=== PATIENT | female | born 1990 | race Caucasian/White ===

== ENCOUNTER 2019-01-26 13:47 | Emergency (ER) | payer SELFPAY ==
--- OUTSIDE RECORDS SUMMARY | 2019-01-26 13:49 | XMS REPORT ---
:1990 [facility] Address [address] [place] [address] Dr. Ray [address] [place] [address] Care Team Providers Name Role Phone Unavailable Unavailable Unavailable Problems This patient has no known problems. Allergies, Adverse Reactions, Alerts This patient has no known allergies or adverse reactions. Medications This patient has no known medications.
--- NOTE | 2019-01-26 14:20 | EKG ---
Test Date: 2019-01-26 Test Time: 14:02:12 Medical I D Sales: TOREY MEASUREMENT RESULTS: Intervals: Rate: 95 KS: 124 QRSD: 98 QT: 346 QTc: 434 [place]: P: 70 KS: 124 QRS: 64 T: 71 INTERPRETIVE STATEMENTS: Normal sinus rhythm Normal ECG No previous ECG available for comparison Electronically Signed On 01-26-19 14:19:39 CDT by Michael Johnson
[2019-01-26 15:54] LABS: Protime INR 0.99
--- NOTE | 2019-01-26 15:55 | RAD REPORT ---
EXAM DESCRIPTION: RAD - Chest Pa And Lat (2 Views) - 01/26/2019 3:05 pm CLINICAL HISTORY: Chest pain COMPARISON: None. TECHNIQUE: PA and lateral views of the chest were obtained. FINDINGS: The lungs are clear. Heart size is normal and central vasculature is within normal limit s. No pleural effusion or pneumothorax seen. No acute bony finding noted. No aortic abnormality. Nipple piercing jewelry in place. IMPRESSION: No acute cardiopulmonary process.
[2019-01-26] MEDS ORDERED: NA CHLORIDE 0.9% 1,000 ML ONE (16:06)
[2019-01-26] MEDS ORDERED: SUCRALFATE 1 GM TABLET ONE (16:06)
[2019-01-26 16:30] LABS: Troponin (Emerg Dept Use Only) < 0.02 ng/mL (0.0-0.045)
[2019-01-26 17:27] LABS: Absolute Lymphocytes (CBC) 1.3 K/uL (0.7-4.9); Basophils % 0.5 % (0-1.3); Hematocrit 35.3 % (36.0-45.0); Lymphocytes % 15.5 % (15.3-44.8); MPV 11.9 fL (7.6-11.3); RBC Red Blood Cell Count 4.12 M/uL (3.86-4.86)
[2019-01-26 17:34] LABS: ALT/SGPT 15 U/L (12-78); AST/SGOT 14 U/L (15-37); Albumin 3.9 g/dL (3.4-5.0); Alkaline Phosphatase 66 U/L (45-117); BUN Blood Urea Nitrogen 9 mg/dL (7-18); Bicarbonate 25 mmol/L (21-32); Bilirubin Direct < 0.1 mg/dL (0-0.2); Bilirubin Total 0.2 mg/dL (0.2-1.0); Glucose Level 92 mg/dL (74-106); Protein, Total 7.4 g/dL (6.4-8.2); Sodium Level 142 mmol/L (136-145)
--- NOTE | 2019-01-26 17:40 | ER ---
Nurse's Notes [facility] Name: Mary Galarza Age: 28 yrs Sex: Female : 1990 Arrival Date: 01/26/2019 Time: 13:52 Bed 15 Private MD: Diagnosis: Chest pain, unspecified;Gastro-esophageal reflux disease Presentation: 01/26 13:52 Presenting complaint: Patient states: i have this chest pain that started yesterday, hj tight and heavy, radiating pain on my L arma nd neck area; reports dizziness and SOB;. Transition of care: patient was not received from another setting of care. Onset of symptoms was January 26, 2019. Risk Assessment: Do you want to hurt yourself or someone else? Patient reports no desire to harm self or others. Initial Sepsis Screen: Does the patient meet any 2 criteria? No. Patient's initial sepsis screen is negative. Does the patient have a suspected source of infection? No. Patient's initial sepsis screen is negative. Care prior to arrival: None. 13:52 Method Of Arrival: Ambulatory 13:52 Acuity: KIRSTY 3 hj RN SOCIAL SERVICES: 13:55 LMP N/A - control method hj Historical: - Allergies: 13:54 Codeine; hj 13:54 Latex, Natural Rubber; hj - PMHx: 13:54 esophagitis; Asthma; hj - PSHx: 13:54 Tubal ligation; hj - Immunization history:: Adult Immunizations unknown. - Social history:: Smoking status: Patient/guardian denies using tobacco. - Ebola Screening: : No symptoms or risks identified at this time. Screenin:15 Abuse screen: Denies threats or abuse. Denies injuries from another. Nutritional ph screening: No deficits noted. Tuberculosis screening: No symptoms or risk factors identified. Fall Risk None identified. Assessment: 14:00 General: Appears in no apparent distress. comfortable, slender, well groomed, Behavior ph is cooperative, appropriate for age, anxious, Denies fever, feeling ill. Pain: Complains of pain in xyphoid area and mid-sternal area Pain radiates to back. Neuro: Level of Consciousness is awake, alert, obeys commands, Oriented to person, place, time, situation. Cardiovascular: Reports chest pain, fatigue, lightheadedness, shortness of breath, Capillary refill < 3 seconds in bilateral fingers Patient's skin is warm and dry. Rhythm is sinus rhythm. Respiratory: Reports shortness of breath on exertion Airway is patent Respiratory effort is even, unlabored, Respiratory pattern is regular, symmetrical, Breath sounds are clear bilaterally. GI: Reports indigestion, nausea. Derm: Skin is intact, Skin is pink, warm \T\ dry. Musculoskeletal: Circulation, motion, and sensation intact. Range of motion: intact in all extremities. 15:00 Reassessment: Patient appears in no apparent distress at this time. Patient and/or ph family updated on plan of care and expected duration. Pain level reassessed. Patient is alert, oriented x 3, equal unlabored respirations, skin warm/dry/pink. 16:00 Reassessment: Patient appears in no apparent distress at this time. Patient and/or ph family updated on plan of care and expected duration. Pain level reassessed. Patient is alert, oriented x 3, equal unlabored respirations, skin warm/dry/pink. 17:00 Reassessment: Patient appears in no apparent distress at this time. Patient and/or ph family updated on plan of care and expected duration. Pain level reassessed. Patient is alert, oriented x 3, equal unlabored respirations, skin warm/dry/pink. 18:00 Reassessment: Patient appears in no apparent distress at this time. Patient and/or ph family updated on plan of care and expected duration. Pain level reassessed. Patient is alert, oriented x 3, equal unlabored respirations, skin warm/dry/pink. Pt d/c home w/ fami;y. Vital Signs: 13:54 BP 109 / 67; Pulse 88; Resp 18; Temp 99.8(TE); Pulse Ox 100% on R/A; Weight 53.52 kg; Height 5 ft. 5 in. (165.10 cm); Pain 3/10; 15:00 BP 117 / 72; Pulse 78; Resp 18; Pulse Ox 99% on R/A; ph 16:16 BP 118 / 78; Pulse 76; Resp 18; Pulse Ox 100% on R/A; ph 17:30 BP 122 / 84; Pulse 64; Resp 18; Temp 98.0; Pulse Ox 100% on R/A; ph 13:54 Body Mass Index 19.63 (53.52 kg, 165.10 cm) ED Course: 13:52 Patient arrived in ED. rg4 13:53 Triage completed. hj 13:54 Arm band placed on right wrist. hj 14:18 EKG done, by fisheries technical officer. reviewed by Jose Rodriges MD. 3 14:39 Donna Simons, RN is Primary Nurse. ph 14:42 Heydi Vaz FNP-C is [facility]. snw 14:42 Jose Rodriges MD is Attending Physician. snw 15:02 Chest Pa And Lat (2 Views) XRAY In Process Unspecified. EDMS 15:45 No provider procedures requiring assistance completed. Inserted saline lock: 22 gauge ph in right antecubital area, using aseptic technique. Blood collected. Patient maintains SpO2 saturation greater than 95% on room air. 16:15 Patient has correct armband on for positive identification. Bed in low position. Call ph light in reach. Side rails up X 1. monitoring specialist on. Pulse ox on. NIBP on. Door closed. Noise minimized. Warm blanket given. Head of bed elevated. 18:00 IV discontinued, intact, bleeding controlled, No redness/swelling at site. Pressure ph dressing applied. Administered Medications: 16:10 Drug: NS 0.9% 1000 ml Route: IV; Rate: 1 bolus; Site: right antecubital; ph 17:00 Follow up: Response: No adverse reaction; IV Status: Completed infusion; IV Intake: ph 1000ml 16:11 Drug: CarafATE 1 grams Route: PO; ph 17:00 Follow up: Response: No adverse reaction ph Intake: 17:00 IV: 1000ml; Total: 1000ml. ph Outcome: 17:39 Discharge ordered by . snw 18:02 Patient left the ED. ph 18:02 Discharged to home ambulatory, with family. ph 18:02 Condition: good 18:02 Discharge instructions given to patient, Instructed on discharge instructions, follow up and referral plans. medication usage, Demonstrated understanding of instructions, follow-up care, medications, Prescriptions given X 1. Signatures: Dispatcher [employer] EDMS Heydi Vaz FNP-C FNP-CsnDonna Leal RN RN Demario Fitzgerald RN RN hj Garcia, Rubi rg4 Vania Figueroa 3 Corrections: (The following items were deleted from the chart) 13:55 13:54 Pulse 88bpm; Resp 18bpm; Pulse Ox 100% RA; Temp 99.8F Temporal; 53.52 kg; Height hj 5 ft. 5 in.; BMI: 19.6; Pain 3/10; hj
--- NOTE | 2019-01-26 17:41 | EDPHYS ---
Physician Documentation [facility] Name: Mary Galarza Age: 28 yrs Sex: Female : 1990 Arrival Date: 01/26/2019 Time: 13:52 Bed 15 Private MD: ED Physician Jose Rodriges HPI: 01/26 16:24 This 28 yrs old Female presents to ER via Ambulatory with complaints of Chest snw Pain, Dizziness, Shortness Of Breath. 16:24 The patient or guardian reports chest pain that is located primarily in the substernal snw area. The pain does not radiate. Associated signs and symptoms: Pertinent positives: dizziness, shortness of breath. The chest pain is described as a pressure. Duration: The patient or guardian reports multiple episodes. Severity of pain: At its worst the pain was moderate. The patient has not experienced similar symptoms in the past. The patient has not recently seen a physician. 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 - Social history:: Smoking status: Patient/guardian denies using tobacco. - Ebola Screening: : No symptoms or risks identified at this time. ROS: 16:19 Eyes: Negative for injury, pain, redness, and discharge, ENT: Negative for injury, snw pain, and discharge, Neck: Negative for injury, pain, and swelling. 16:19 Abdomen/GI: Negative for abdominal pain, nausea, vomiting, diarrhea, and constipation, Back: Negative for injury and pain, : Negative for injury, bleeding, discharge, and swelling, MS/Extremity: Negative for injury and deformity, Skin: Negative for injury, rash, and discoloration. 16:19 Neuro: Negative for headache, weakness, numbness, tingling, and seizure. 16:19 Constitutional: Positive for body aches. 16:19 Cardiovascular: Positive for chest pain, of the mid-sternal area. 16:19 Respiratory: Positive for shortness of breath, at rest. 16:19 Neuro: Positive for shaky, anxious feeling. 16:19 Psych: Positive for anxiety. Exam: 16:16 Head/Face: Normocephalic, atraumatic. Eyes: Pupils equal round and reactive to light, snw extra-ocular motions intact. Lids and lashes normal. Conjunctiva and sclera are non-icteric and not injected. Cornea within normal limits. Periorbital areas with no swelling, redness, or edema. ENT: Nares patent. No nasal discharge, no septal abnormalities noted. Tympanic membranes are normal and external auditory canals are clear. Oropharynx with no redness, swelling, or masses, exudates, or evidence of obstruction, uvula midline. Mucous membranes moist. Neck: Trachea midline, no thyromegaly or masses palpated, and no cervical lymphadenopathy. Supple, full range of motion without nuchal rigidity, or vertebral point tenderness. No Meningismus. Chest/axilla: Normal chest wall appearance and motion. Nontender with no deformity. No lesions are appreciated. 16:16 Abdomen/GI: Soft, non-tender, with normal bowel sounds. No distension or tympany. No guarding or rebound. No evidence of tenderness throughout. Back: No spinal tenderness. No costovertebral tenderness. Full range of motion. 16:16 Skin: Warm, dry with normal turgor. Normal color with no rashes, no lesions, and no evidence of cellulitis. MS/ Extremity: Pulses equal, no cyanosis. Neurovascular intact. Full, normal range of motion. Neuro: Awake and alert, GCS 15, oriented to person, place, time, and situation. Cranial nerves II-XII grossly intact. Motor strength 5/5 in all extremities. Sensory grossly intact. Cerebellar exam normal. Normal gait. 16:16 Constitutional: The patient appears alert, awake, anxious, restless, thin 16:16 Cardiovascular: Rate: tachycardic, Rhythm: regular, Pulses: no pulse deficits are appreciated, Heart sounds: normal. 16:16 Respiratory: the patient does not display signs of respiratory distress, Respirations: normal, shallow respirations, tachypnea, Breath sounds: are clear throughout. 16:16 Psych: Behavior/mood is cooperative, anxious, Affect is animated. Vital Signs: 13:54 BP 109 / 67; Pulse 88; Resp 18; Temp 99.8(TE); Pulse Ox 100% on R/A; Weight 53.52 kg; hj Height 5 ft. 5 in. (165.10 cm); Pain 3/10; 15:00 BP 117 / 72; Pulse 78; Resp 18; Pulse Ox 99% on R/A; ph 16:16 BP 118 / 78; Pulse 76; Resp 18; Pulse Ox 100% on R/A; ph 17:30 BP 122 / 84; Pulse 64; Resp 18; Temp 98.0; Pulse Ox 100% on R/A; ph 13:54 Body Mass Index 19.63 (53.52 kg, 165.10 cm) hj MDM: 14:44 Patient medically screened. snw 16:17 Data reviewed: vital signs, nurses notes. Data interpreted: Pulse oximetry: on room air snw is 100 %. Interpretation: normal. Counseling: I had a detailed discussion with the patient and/or guardian regarding: the historical points, exam findings, and any diagnostic results supporting the discharge/admit diagnosis, lab results, radiology results, the need for outpatient follow up. Special discussion: Based on the patient's history, exam, and Dx evaluation, there is no indication for emergent intervention or inpatient Tx. It is understood by the patient/guardian that if the Sx's persist or worsen they need to return immediately for re-evaluation. Based on the history and exam findings, there is no indication for further emergent testing or inpatient evaluation. I discussed with the patient/guardian the need to see the primary care provider for further evaluation of the symptoms. ED course: pt states she takes Dexilant for esophagitis but is also taking Motrin for that inflammation at dosages of 1200-1600mg per day. Encouraged pt to stop taking Motrin 2nd to risk to kidneys. 17:28 Awaiting: lab results/ not done in lab, charge nurse notified. formerly [facility] 01/26 14:50 Order name: TSH; Complete Time: 17:38 snw 01/26 14:50 Order name: Basic Metabolic Panel; Complete Time: 17:38 snw 01/26 14:50 Order name: CBC with Diff; Complete Time: 17:34 snw 01/26 14:50 Order name: LFT's; Complete Time: 17:38 snw 01/26 14:50 Order name: PT-INR; Complete Time: 16:10 snw 01/26 13:51 Order name: EKG; Complete Time: 13:52 01/26 14:44 Order name: Chest Pa And Lat (2 Views) XRAY; Complete Time: 16:10 snw 01/26 14:50 Order name: Troponin (emerg Dept Use Only); Complete Time: 16:38 snw 01/26 14:51 Order name: ASA; Complete Time: 16:26 snw 01/26 14:51 Order name: Tylenol Level; Complete Time: 16:38 snw 01/26 14:50 Order name: Cardiac monitoring; Complete Time: 15:17 snw 01/26 14:50 Order name: EKG - Nurse/Tech; Complete Time: 15:18 snw 01/26 14:50 Order name: IV Saline Lock; Complete Time: 16:00 snw 01/26 14:50 Order name: Labs collected and sent; Complete Time: 16:00 snw 01/26 14:50 Order name: O2 Per Protocol; Complete Time: 16:00 snw 01/26 14:50 Order name: O2 Sat Monitoring; Complete Time: 16:00 snw Administered Medications: 16:10 Drug: NS 0.9% 1000 ml Route: IV; Rate: 1 bolus; Site: right antecubital; ph 17:00 Follow up: Response: No adverse reaction; IV Status: Completed infusion; IV Intake: ph 1000ml 16:11 Drug: CarafATE 1 grams Route: PO; ph 17:00 Follow up: Response: No adverse reaction ph Disposition: 01/27 07:23 Co-signature as Attending Physician, Jose Rodriges MD. rn Disposition: 01/26/19 17:39 Discharged to Home. Impression: Chest pain, unspecified, Gastro-esophageal reflux disease. - Condition is Stable. - Discharge Instructions: Nonspecific Chest Pain, Gastroesophageal Reflux Disease, Adult. - Prescriptions for Carafate 1 gram Oral Tablet - take 1 tablet by ORAL route 4 times per day take on an empty stomach, beginning on waking and last dose at bedtime; 100 tablet. - Medication Reconciliation Form, Thank You Letter, Antibiotic Education, Prescription Opioid Use form. - Follow up: Private Physician; When: 2 - 3 days; Reason: Recheck today's complaints, Continuance of care, Re-evaluation by your physician. Follow up: Emergency Department; When: As needed; Reason: Worsening of condition. - Notes: Please continue Dexilant. Motrin only sparingly Signatures: Dispatcher [employer] EDMS Татьяна, Heydi, NUTRITION INSTRUCTOR-C NUTRITION INSTRUCTOR-Csnw Jose Rodriges MD MD rn Donna Simons RN RN Demario Fitzgerald RN RN Corrections: (The following items were deleted from the chart) 01/26 15:02 14:50 Chest Single View+RAD.RAD.BRZ ordered. [facility] 18:02 17:39 01/26/2019 17:39 Discharged to Home. Impression: Chest pain, unspecified; ph Gastro-esophageal reflux disease. Condition is Stable. Forms are Medication Reconciliation Form, Thank You Letter, Antibiotic Education, Prescription Opioid Use. Follow up: Private Physician; When: 2 - 3 days; Reason: Recheck today's complaints, Continuance of care, Re-evaluation by your physician. Follow up: Emergency Department; When: As needed; Reason: Worsening of condition. snw
[2019-01-26 22:16] VITALS: O2SAT 100
[2019-01-26 22:18] VITALS: BP 122/84; TEMP 98
== END 2019-01-26 18:02 | disposition home or self-care (01) ==
LOC: ER 13:47
DX: K21.9 Gastro-esophageal reflux disease without esophagitis (principal); R07.9 Chest pain, unspecified; J45.909 Unspecified asthma, uncomplicated; Z88.5 Allergy status to narcotic agent; Z91.040 Latex allergy status
CPT/HCPCS: 36415; 71046; 80048; 80076; 80329; 84443; 84484; 85025; 85610; 93005; 96360; 99285; J7030

== ENCOUNTER 2020-12-12 18:35 | Emergency (ER) | payer SELFPAY ==
--- OUTSIDE RECORDS SUMMARY | 2020-12-12 18:38 | XMS REPORT | Continuity of Care Document ---
:1990 Author Organization [facility] t Address [address] [place] [address] Dr. Ray [address] [place] [id number] Care Team Providers Name Role Phone Unavailable Unavailable Unavailable Problems This patient has no known problems. Allergies, Adverse Reactions, Alerts This patient has no known allergies or adverse reactions. Medications This patient has no known medications. Procedures This patient has no known procedures. Results This patient has no known results.
[2020-12-12] MEDS ORDERED: dexAMETHasone 10 MG/ML VIAL ONE (20:56)
[2020-12-12] MEDS ORDERED: FAMOTIDINE 20 MG/2 ML VIAL IV ONE (20:56)
--- NOTE | 2020-12-12 21:45 | EDPHYS ---
Physician Documentation [facility] Name: Mary Briones Age: 30 yrs Sex: Female : 1990 Arrival Date: 12/12/2020 Time: 18:37 Bed 13 Private MD: ED Physician Vivek Benavides HPI: 12/12 19:52 This 30 yrs old Female presents to ER via Ambulatory with complaints of pm1 Reaction to Medication. 19:53 The patient's rash thought to be caused by medication. The rash is located on the body pm1 diffusely. The rash can be described as urticarial. Onset: The symptoms/episode began/occurred today. Associated signs and symptoms: Pertinent positives: itching, Pertinent negatives: burning sensation, difficulty breathing, swelling of lips, swelling of throat, swelling of tongue, vomiting. Severity of symptoms: in the emergency department the symptoms are worse Pain is currently a 0 / 10. Treatment given at home: hydroxyzine. The patient has not experienced similar symptoms in the past. The patient has been recently seen by a physician: a psychiatrist. 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 - Social history:: Smoking status: Patient denies any tobacco usage or history of. Vital Signs: 18:49 BP 127 / 88; Pulse 76; Resp 15; Temp 97.9(TE); Pulse Ox 98% on R/A; Height 5 ft. 5 in. ss (165.10 cm); Pain 0/10; 19:45 BP 112 / 90; Pulse 85; Resp 16; Pulse Ox 100% ; bb 20:30 BP 98 / 64; Pulse 78; Resp 16 S; Pulse Ox 100% on R/A; bb 22:02 BP 119 / 74; Pulse 98; Resp 16 S; Temp 98.4(O); Pulse Ox 100% on R/A; bb MDM: 19:42 Patient medically screened. pm1 19:52 ED course: Patient took hydroxyzine prior to ER arrival. pm1 21:44 Data reviewed: vital signs. Data interpreted: Pulse oximetry: on room air is 100 %. pm1 Interpretation: normal. Counseling: I had a detailed discussion with the patient and/or guardian regarding: the historical points, exam findings, and any diagnostic results supporting the discharge/admit diagnosis, the need for outpatient follow up, to return to the emergency department if symptoms worsen or persist or if there are any questions or concerns that arise at home. 12/12 19:52 Order name: IV Saline Lock; Complete Time: 20:53 pm1 Administered Medications: 20:30 Drug: Decadron - Dexamethasone 10 mg Route: IVP; Site: right antecubital; bb 21:30 Follow up: Response: No adverse reaction; Marked relief of symptoms bb 20:30 Drug: Pepcid (famotidine) 20 mg Route: IVP; Site: right antecubital; bb 21:30 Follow up: Response: No adverse reaction; Marked relief of symptoms bb Disposition: 12/12/20 21:45 Discharged to Home. Impression: Urticaria, unspecified. - Condition is Stable. - Discharge Instructions: Hives. - Prescriptions for Pepcid 20 mg Oral Tablet - take 1 tablet by ORAL route every 12 hours for 10 days; 20 tablet. Medrol (Attila) 4 mg Oral Tablets, Dose Pack - take 1 tablet by ORAL route as directed - follow package instructions; 1 packet. - Medication Reconciliation Form, Thank You Letter, Antibiotic Education, Prescription Opioid Use form. - Follow up: Emergency Department; When: As needed; Reason: Worsening of condition. Follow up: Private Physician; When: 2 - 3 days; Reason: Recheck today's complaints, Continuance of care, Re-evaluation by your physician. - Problem is new. - Symptoms have improved. Addendum: 12/13/2020 08:12 Co-signature as Attending Physician, Vivek Benavides MD. p kl 13:28 Addendum: ROS: Constitutional: Negative for fever, chills, and weight loss. p m1 CArdiovascular: Negative for chest pain, palpitations, and edema, Respiratory: negative for shortness of breath, cough, wheezing, and pleuritic chest pain. Neuro: negative for headache, weakness, numbness, tingling, and seizure. MS/extremity: negative for pain, swelling, tenderness. Skin: positive for itchy rash diffusely. All other systems are negative. 13:33 Addendum: Exam: Constitutional: This is a well developed, well nourished patient who is p m1 awake, alert, and in no acute distress. Eyes: PERRLA, EOMI, no discharge. ENT: Mouth and lips: No swelling, mucous membranes pink moist, intact. Head/face: Normocephalic, atraumatic. Cardiovascular: Exam negative for acute changes, RRR, no pulse deficits. Respiratory: Exam negative for acute changes, respiratory distress, shortness of breath. Musculoskeletal/extremity: FROM, no deformity. Circulation is intact to all extremities. Skin: diffuse urticarial rash to chest and bilateral legs.. Signatures: Vivek Benavides MD MD pkl Ballard, Brenda, RN RN Deidra Hennessy RN RN ss Donaldo Hutchins, [place] RESEARCH PROGRAMMER pm1 Corrections: (The following items were deleted from the chart) 12/12 22:04 21:45 12/12/2020 21:45 Discharged to Home. Impression: Urticaria, unspecified. bb Condition is Stable. Forms are Medication Reconciliation Form, Thank You Letter, Antibiotic Education, Prescription Opioid Use. Follow up: Emergency Department; When: As needed; Reason: Worsening of condition. Follow up: Private Physician; When: 2 - 3 days; Reason: Recheck today's complaints, Continuance of care, Re-evaluation by your physician. Problem is new. Symptoms have improved. pm1
--- NOTE | 2020-12-12 21:45 | ER ---
Nurse's Notes [facility] Name: Mary Briones Age: 30 yrs Sex: Female : 1990 Arrival Date: 12/12/2020 Time: 18:37 Bed 13 Private MD: Diagnosis: Urticaria, unspecified Presentation: 12/12 18:49 Chief complaint: Patient states: "I started taking Lamotrigine 2 weeks ago and I kind ss of noticed some things, like swollen lymph nodes and I increased my dose to 50 mg last night and I woke up this morning with this itchy rash all over my body and my doctor wanted me to come to the ER.". Coronavirus screen: Client denies travel out of the [place] in the last 14 days. Ebola Screen: Patient denies exposure to infectious person. Patient denies travel to an Ebola-affected area in the 21 days before illness onset. Initial Sepsis Screen: Does the patient meet any 2 criteria? No. Patient's initial sepsis screen is negative. Does the patient have a suspected source of infection? No. Patient's initial sepsis screen is negative. Risk Assessment: Do you want to hurt yourself or someone else? Patient reports no desire to harm self or others. Onset of symptoms was December 12, 2020. 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 - Social history:: Smoking status: Patient denies any tobacco usage or history of. Screenin:00 Abuse screen: Denies threats or abuse. Nutritional screening: No deficits noted. bb Tuberculosis screening: No symptoms or risk factors identified. Fall Risk None identified. Assessment: 20:00 General: Appears in no apparent distress. slender, Behavior is calm, cooperative. Pain: bb Denies pain. Neuro: Level of Consciousness is awake, alert, obeys commands, Oriented to person, place, time, situation. Cardiovascular: Capillary refill < 3 seconds Patient's skin is warm and dry. Respiratory: Airway is patent Respiratory effort is even, unlabored, Respiratory pattern is regular. GI: No signs and/or symptoms were reported involving the gastrointestinal system. Derm: Rash noted that is macular, on generalized. Musculoskeletal: Circulation, motion, and sensation intact. 21:00 Reassessment: Patient is alert, oriented x 3, equal unlabored respirations, skin bb warm/dry/pink. 22:02 Reassessment: Patient is alert, oriented x 3, equal unlabored respirations, skin bb warm/dry/pink. pt verbalized understanding of and agrees to plan of care discharge instructions given pt ambulated with steady gait to exit accompanied by friend. Vital Signs: 18:49 BP 127 / 88; Pulse 76; Resp 15; Temp 97.9(TE); Pulse Ox 98% on R/A; Height 5 ft. 5 in. ss (165.10 cm); Pain 0/10; 19:45 BP 112 / 90; Pulse 85; Resp 16; Pulse Ox 100% ; bb 20:30 BP 98 / 64; Pulse 78; Resp 16 S; Pulse Ox 100% on R/A; bb 22:02 BP 119 / 74; Pulse 98; Resp 16 S; Temp 98.4(O); Pulse Ox 100% on R/A; bb ED Course: 18:37 Patient arrived in ED. ds1 18:50 Triage completed. ss 18:52 Arm band placed on right wrist. ss 19:39 Ashly Watson RN is Primary Nurse. bb 19:41 Donaldo Hutchins NP is PHCP. pm1 19:41 Vivek Benavides MD is Attending Physician. pm1 20:00 Patient has correct armband on for positive identification. Bed in low position. Call bb light in reach. 20:30 Inserted saline lock: 20 gauge in right antecubital area, using aseptic technique. bb 21:20 No provider procedures requiring assistance completed. bb 21:55 IV discontinued, intact, bleeding controlled, No redness/swelling at site. Pressure bb dressing applied. Administered Medications: 20:30 Drug: Decadron - Dexamethasone 10 mg Route: IVP; Site: right antecubital; bb 21:30 Follow up: Response: No adverse reaction; Marked relief of symptoms bb 20:30 Drug: Pepcid (famotidine) 20 mg Route: IVP; Site: right antecubital; bb 21:30 Follow up: Response: No adverse reaction; Marked relief of symptoms bb Outcome: 21:45 Discharge ordered by MD. pm1 22:03 Discharged to home ambulatory, with friend. bb 22:03 Condition: stable 22:03 Discharge instructions given to patient, Instructed on discharge instructions, follow up and referral plans. medication usage, Demonstrated understanding of instructions, follow-up care, medications, Prescriptions given X 2. 22:04 Patient left the ED. bb Signatures: Stephany Herman ds1 Ashly Watson RN RN Deidra Hennessy RN RN ss Donaldo Hutchins, [place] GRAIN DRIER OPERATOR pm1
[2020-12-12 22:32] VITALS: O2SAT 100
[2020-12-12 22:35] VITALS: BP 119/74; TEMP 98.4
== END 2020-12-12 22:04 | disposition home or self-care (01) ==
LOC: ER 18:35
DX: L50.9 Urticaria, unspecified (principal); F31.9 Bipolar disorder, unspecified; Z88.5 Allergy status to narcotic agent; Z91.040 Latex allergy status; Z91.048 Other nonmedicinal substance allergy status
CPT/HCPCS: 96374; 96375; 99283; J1100

== ENCOUNTER 2021-04-28 17:17 | Emergency (ER) | payer SELFPAY ==
[2021-04-28] MEDS ORDERED: IBUPROFEN 400 MG TAB ONE (18:12)
--- NOTE | 2021-04-28 19:25 | RAD REPORT ---
EXAM DESCRIPTION: RAD - Hand Right 3 View - 04/28/2021 7:03 pm CLINICAL HISTORY: Swelling;Pain COMPARISON: No comparisons FINDINGS: No acute fracture. No malalignment. No significant focal degenerative changes. IMPRESSION: No acute osseous abnormality involving the right hand.
--- NOTE | 2021-04-28 19:38 | ER ---
Nurse's Notes [facility] Name: Mary Briones Age: 30 yrs Sex: Female : 1990 Arrival Date: 04/28/2021 Time: 17:19 Bed 12 Private MD: Diagnosis: Contusion of right hand Presentation: 04/28 18:08 Chief complaint: Patient states: punched a wall yesterday with right hand, it's swollen iw and stiff. Coronavirus screen: At this time, the client does not indicate any symptoms associated with coronavirus-19. Ebola Screen: Patient negative for fever greater than or equal to 101.5 degrees Fahrenheit, and additional compatible Ebola Virus Disease symptoms Patient denies exposure to infectious person. Patient denies travel to an Ebola-affected area in the 21 days before illness onset. No symptoms or risks identified at this time. Initial Sepsis Screen: Does the patient meet any 2 criteria? No. Patient's initial sepsis screen is negative. Does the patient have a suspected source of infection? No. Patient's initial sepsis screen is negative. Risk Assessment: Do you want to hurt yourself or someone else? Patient reports no desire to harm self or others. Onset of symptoms was April 27, 2021. 18:08 Method Of Arrival: Ambulatory iw 18:08 Acuity: KIRSTY 4 iw Triage Assessment: 19:55 Injury Description: Abrasion sustained to right hand Bruise sustained to right hand cc4 swelling right hand. 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 - Social history:: Smoking status: Patient denies any tobacco usage or history of. Screenin:16 Abuse screen: Denies threats or abuse. Denies injuries from another. Nutritional iw screening: No deficits noted. Tuberculosis screening: No symptoms or risk factors identified. Fall Risk None identified. Assessment: 18:16 General: Appears in no apparent distress. Behavior is calm, cooperative. Pain: iw Complains of pain in right hand. Neuro: Level of Consciousness is awake, alert, obeys commands, Oriented to person, place, time, situation, Moves all extremities. Full function Gait is. Musculoskeletal: Range of motion: limited in right hand. 19:55 Reassessment: Patient appears in no apparent distress at this time. Bruising/swelling cc4 noted dorsal right hand with small abrasion noted proximal joint at base of fourth digit and dressed with triple antibiotic ointment/bandaide; volvar splint applied right hand, maura. well; reports decreasing pain of right hand until movement with application of splint; NAD. Derm: small abrasion noted right hand at proximal joint (base of fourth digit); dressed with triple antibiotic ointment and bandaide. Musculoskeletal: Capillary refill < 3 seconds, Swelling present in right hand. Vital Signs: 18:08 BP 117 / 66; Pulse 86; Resp 16; Temp 98.0; Pulse Ox 100% on R/A; Weight 54.43 kg; Pain iw 4/10; 19:55 BP 111 / 69; Pulse 69; Resp 20; Temp 98.2; cc4 ED Course: 17:19 Patient arrived in ED. am2 18:10 Triage completed. iw 18:11 Arm band placed on. iw 18:13 Kelvin Woodard PA is PHCP. cp 18:13 Toño Lima MD is Attending Physician. cp 18:14 Mercy Corey, RN is Primary Nurse. iw 18:16 No provider procedures requiring assistance completed. Patient did not have IV access iw during this emergency room visit. 19:03 Hand Right 3 View XRAY In Process Unspecified. EDMS 19:09 Dianne Paiz is Primary Nurse. tw5 19:35 Delgado Barnes MD is Referral Physician. cp 19:55 Patient has correct armband on for positive identification. Call light in reach. cc4 Administered Medications: 18:14 Drug: Motrin (ibuprofen) 400 mg Route: PO; iw 19:55 Follow up: Response: No adverse reaction; Pain is decreased cc4 Outcome: 19:37 Discharge ordered by MD. cp 19:55 Discharged to home ambulatory. cc4 19:55 Condition: good 19:55 Discharge instructions given to patient, Instructed on discharge instructions, follow up and referral plans. medication usage, Demonstrated understanding of instructions, follow-up care, medications. 20:05 Patient left the ED. cc4 Signatures: Dispatcher [employer] EDMercy Milton, RN RN iw Kelvin Woodard PA PA cp Moreno, Amanda am2 Cooper, Christie, RN RN cc4 Dianne Paiz tw5
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
[2021-04-28 20:10] VITALS: O2SAT 100
[2021-04-28 20:11] VITALS: BP 111/69; TEMP 98.2
--- OUTSIDE RECORDS SUMMARY | 2021-04-29 23:10 | XMS REPORT | Continuity of Care Document ---
:[address] [facility] t Address [address] [place] [address] Care Team Providers Name Role Phone EDEMEKONG Attending Clinician Unavailable Payers Payer Name Policy Type Policy Number Effective Date Expiration Date S sita [employer] GENERIC [id number] 2019 00:00:00 Problems This patient has no known problems. Allergies, Adverse Reactions, Alerts Allergy Allergy Status Severity Reaction(s) Onset Inactive Treating Comm ents Source Name Type Date Date Clinician CODEINE DRUG Active ITCHING 2015-06 [facility] INGREDI 1- ity of 00:00: [place] 00 [facility] CAT HAIR DRUG Active Unknown-Cmnt 0 Un norm STD 7-02 ity of ALLERGEN 00:00: [place] IC EXT 00 [facility] LATEX DRUG Active ITCHING [facility] INGREDI 6-14 ity of 00:00: [address] Medications This patient has no known medications. Procedures This patient has no known procedures. Encounters Start End Encounter Admission Attending Care Care Encounter Source Date/Time Date/Time Type Type Clinicians Facility Department ID 2020-01-04 2020-01-04 Outpatient R [facility] [id number] Univers 08:00:00 08:00:00 ity [facility] 2020-01-04 2020-01-04 Outpatient R [facility] [id number] Univers 08:00:00 08:00:00 ity [facility] 2019-11-26 2019-11-26 [facility] [id number] Univers 12:00:00 12:00:00 RIRI [id number] ity [facility] 2019-11-26 2019-11-26 [facility] [id number] Univers 12:00:00 12:00:00 RIRI varma [facility] Results This patient has no known results.
== END 2021-04-28 20:05 | disposition home or self-care (01) ==
LOC: ER 17:17
DX: S60.221A Contusion of right hand, initial encounter (principal); W22.8XXA Striking against or struck by other objects, initial encounter; Y92.009 Unspecified place in unspecified non-institutional (private) residence as the place of occurrence of the external cause; J45.909 Unspecified asthma, uncomplicated; F41.9 Anxiety disorder, unspecified; Z91.040 Latex allergy status
CPT/HCPCS: 99283

== ENCOUNTER 2021-05-24 15:56 | Emergency (ER) | payer SELFPAY ==
--- OUTSIDE RECORDS SUMMARY | 2021-05-24 16:01 | XMS REPORT | Continuity of Care Document ---
:1990 Author Organization [facility] t Address [address] [place] [address] Care Team Providers Name Role Phone EDEMEKONG Attending Clinician Unavailable Payers Payer Name Policy Type Policy Number Effective Date Expiration Date S sita [employer] GENERIC [id number] 2019 00:00:00 Problems This patient has no known problems. Allergies, Adverse Reactions, Alerts Allergy Allergy Status Severity Reaction(s) Onset Inactive Treating Comm ents Source Name Type Date Date Clinician CODEINE DRUG Active ITCHING 2015-06 [facility] INGREDI 1- ity of 00:00: [place] 00 [facility] CAT HAIR DRUG Active Unknown-Cmnt 0 Un norm STD 7-02 ity of ALLERGEN 00:00: [place] IC EXT 00 [facility] LATEX DRUG Active ITCHING [facility] INGREDI 6-14 ity of 00:00: [address] Medications This patient has no known medications. Procedures This patient has no known procedures. Encounters Start End Encounter Admission Attending Care Care Encounter Source Date/Time Date/Time Type Type Clinicians Facility Department ID 2020-01-04 2020-01-04 Outpatient R [facility] [id number] Univers 08:00:00 08:00:00 ity [facility] 2020-01-04 2020-01-04 Outpatient R [facility] [id number] Univers 08:00:00 08:00:00 ity [facility] 2019-11-26 2019-11-26 Outpatient R [facility] [id number] Univers 12:00:00 12:00:00 RIRI [id number] ity [facility] 2019-11-26 2019-11-26 Outpatient R [facility] [id number] Univers 12:00:00 12:00:00 RIRI varma [facility] Results This patient has no known results.
[2021-05-24] MEDS ORDERED: HYDROCODONE/APAP 7.5/325 MG TAB ONE (16:39)
--- NOTE | 2021-05-24 17:02 | RAD REPORT ---
EXAM DESCRIPTION: RAD - Hand Left 3 View - 05/24/2021 4:51 pm CLINICAL HISTORY: crush injury;Pain COMPARISON: No comparisons FINDINGS: No acute fracture. No malalignment. No significant focal degenerative changes. IMPRESSION: No acute osseous abnormality involving the left hand.
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
--- NOTE | 2021-05-24 17:23 | EDPHYS ---
Physician Documentation [facility] Name: Mary Briones Age: 30 yrs Sex: Female : 1990 Arrival Date: 05/24/2021 Time: 15:59 Bed 10 Private MD: ED Physician Juno Alaniz HPI: 05/24 17:00 This 30 yrs old Female presents to ER via Ambulatory with complaints of Hand Injury. cp 17:00 The patient or guardian reports injury. The complaints affect the left hand diffusely. cp Context: resulted from a crush injury, closing of ramon of car. Onset: The symptoms/episode began/occurred today. 17:00 Modifying factors: the symptoms are aggravated by movement. cp 17:00 Associated signs and symptoms: Pertinent negatives: numbness distally. 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 - Social history:: Smoking status: Patient denies any tobacco usage or history of. Patient uses alcohol, but reports only rare drinking. ROS: 17:05 MS/extremity: Positive for abrasion, pain, swelling, tenderness, of the left hand, cp Negative for paresthesias. 17:05 Constitutional: Negative for body aches, chills, fever, poor PO intake. cp 17:05 Neck: Negative for pain with movement, pain at rest. 17:05 Cardiovascular: Negative for chest pain, palpitations. 17:05 Respiratory: Negative for cough, shortness of breath, wheezing. 17:05 Abdomen/GI: Negative for abdominal pain, nausea, vomiting, and diarrhea. 17:05 Skin: Negative for cellulitis, rash. 17:05 Neuro: Negative for headache, numbness, weakness. 17:05 All other systems are negative. Exam: 17:08 Constitutional: The patient appears in no acute distress, alert, awake, well developed, cp well nourished, uncomfortable. 17:08 Musculoskeletal/extremity: Extremities: grossly normal except: noted in the dorsum of cp left hand: abrasion, pain, swelling, tenderness, There is no evidence of decreased ROM, deformity, ROM: limited passive range of motion due to pain, in the left hand, Perfusion: the extremity is normally perfused throughout, the left hand Severe pain noted. Vital Signs: 16:12 BP 119 / 81; Pulse 95; Resp 20; Temp 98.3(TE); Pulse Ox 99% on R/A; Weight 60.33 kg; ld1 Height 5 ft. 5 in. (165.10 cm); Pain 8/10; 16:12 Body Mass Index 22.13 (60.33 kg, 165.10 cm) ld1 MDM: 16:13 Patient medically screened. cp 17:21 Data reviewed: vital signs, nurses notes, radiologic studies, plain films. Test cp interpretation: by ED physician or midlevel provider: plain radiologic studies. Counseling: I had a detailed discussion with the patient and/or guardian regarding: the historical points, exam findings, and any diagnostic results supporting the discharge/admit diagnosis, radiology results, to return to the emergency department if symptoms worsen or persist or if there are any questions or concerns that arise at home. Response to treatment: the patient's symptoms have markedly improved after treatment. 05/24 16:25 Order name: XRAY Hand LEFT 3 View; Complete Time: 17:08 cp 05/24 17:14 Order name: Volar Wrist Splint: orthoglass type; Complete Time: 17:48 cp Administered Medications: 16:43 Drug: Hydrocodone-Acetaminophen (7.5 mg-325 mg) 1 tabs Route: PO; ld1 Disposition: 17:45 Chart complete. cp 22:37 Co-signature as Attending Physician, Juno Alaniz MD I agree with the assessment and sp3 plan of care. Disposition Summary: 05/24/21 17:22 Discharge Ordered Location: Home cp Problem: new cp Symptoms: have improved cp Condition: Stable cp Diagnosis - Crushing injury of left hand, initial encounter cp Followup: cp - With: Private Physician - When: 2 - 3 days - Reason: Recheck today's complaints Discharge Instructions: - Discharge Summary Sheet cp - Crush Injury of the Hand cp Forms: - Medication Reconciliation Form cp - Thank You Letter cp - Antibiotic Education cp - Prescription Opioid Use cp Prescriptions: - Diclofenac Sodium 75 mg Oral tablet,delayed release (DR/EC) - take 1 tablet by ORAL route 2 times per day; 20 tablet; Refills: 0, Product cp Selection Permitted Signatures: Dispatcher [employer] EDMS Kelvin Woodard PA PA cp Dibbern, Lauren, CHILO RN ld1 Juno Alaniz MD MD sp3 Corrections: (The following items were deleted from the chart) 16:33 16:13 Hand Left 2 View+RAD.RAD.BRZ ordered. EDMS EDMS
[2021-05-24 18:02] VITALS: BP 119/81; TEMP 98.3; O2SAT 99
== END 2021-05-24 17:48 | disposition home or self-care (01) ==
LOC: ER 15:56
DX: S67.22XA Crushing injury of left hand, initial encounter (principal); W23.0XXA Caught, crushed, jammed, or pinched between moving objects, initial encounter; F31.9 Bipolar disorder, unspecified; Z88.5 Allergy status to narcotic agent; Z91.040 Latex allergy status; Z91.048 Other nonmedicinal substance allergy status
CPT/HCPCS: 99284

== ENCOUNTER 2025-02-01 02:21 | Emergency (ER) | payer OTHER ==
--- OUTSIDE RECORDS SUMMARY | 2025-02-01 02:25 | XMS REPORT | Continuity of Care Document ---
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 urine or abnormalities in imaging tests). Lab Interpretation (test code = 64389-1) Abnormal [facility] WITH [id number] 22:09:31* Test Item Value Reference Range Interpretation Comme nts WBC (test code = 6690-2) 7.39 See_Comment [Automated [employer]] The system which generated this result transmitted reference range: 4.30 - 11.10 10*3/?L. The reference range was not used to interpret this result as normal/abnormal. RBC (test code = 789-8) 4.27 See_Comment [Automated Cruncheda ge] The system which generated this result transmitted reference range: 3.93 - 5.25 10*6/?L. The reference range was not used to interpret this result as normal/abnormal. HGB (test code = 718-7) 11.6 g/dL 11.6-15.0 HCT (test code = 4544-3) 36.2 % 35.7-45.2 MCV (test code = 787-2) 84.8 fL 80.6-95.5 MCH (test code = 785-6) 27.2 pg 25.9-32.8 MCHC (test code = 786-4) 32.0 g/dL 31.6-35.1 RDW-SD (test code = 77687-4) 51.6 fL 39.0-49.9 H RDW-CV (test code = 788-0) 16.8 % 12.0-15.5 H PLT (test code = 777-3) 244 See_Comment [Automated Cruncheda ge] The system which generated this result transmitted reference range: 166 - 358 10*3/?L. The reference range was not used to interpret this result as normal/abnormal. MPV (test code = 63298-1) 11.9 fL 9.5-12.9 NRBC/100 WBC (test code = 4415846297) 0.0 See_Comment [Automated Exclusively[employer]in ssage] The system which generated this result transmitted reference range: 0.0 - 10.0 /100 WBCs. The reference range was not used to interpret this result as normal/abnormal. NRBC x10^3 (test code = 5119599398) See_Comment [Automated Cruncheda ge] The system which generated this result transmitted reference range: 10*3/?L. The reference range was not used to interpret this result as normal/abnormal. GRAN MAT (NEUT) % (test code = 770-8) 63.7 % IMM GRAN % (test code = 7004996336) 0.40 % LYMPH % (test code = 736-9) 25.3 % MONO % (test code = 5905-5) 8.7 % EOS % (test code = 713-8) 1.2 % BASO % (test code = 706-2) 0.7 % GRAN MAT x10^3(ANC) (test code = 2755222254) 4.71 10*3/uL 1.88-7.09 IMM GRAN x10^3 (test code = 8820407948) 0.03 10*3/uL 0.00-0.06 LYMPH x10^3 (test code = 731-0) 1.87 10*3/uL 1.32-3.29 MONO x10^3 (test code = 742-7) 0.64 10*3/uL 0.33-0.92 EOS x10^3 (test code = 711-2) 0.09 10*3/uL 0.03-0.39 BASO x10^3 (test code = 704-7) 0.05 10*3/uL 0.01-0.07 Lab Interpretation (test code = 85405-3) Abnormal [facility] Notes Date/Time Note Provider Source 2024-05-27 02:42:22 PT D/C home. GCS15, VS stable. Given D/C paperwork. Pt ambulatory at time of discharge. Pt educated on med usage, follow up care, s/s worsening condition, need for hydration. Pt verbalized understanding. Pt ambulated from ED in NAD. VSS. [facility] 2024-05-27 01:17:22 Pt taken for 1 min walk test and no desaturation of O2. Pt maintained 100% while walking unit. Pt also able to hold conversation with no difficulty during walk. [facility] 2024-05-27 01:08:37 Pt presents to ED with c/o being diagnosed with pneumonia on saturday and having difficulty sleeping due to feeling SOB. Pt states her roommate told her she kind of look blue-rajan while sleeping. Pt is 100% RA, Vss. NAD. Pt was prescribed by urgent care on saturday Zithromax, albuterol inhaler and prednisone. Pt states it hurts a lot from coughing or when she does cough. ASSEMBLER Eli Wang RN [facility] 2024-03-31 17:20:39 Pt given printed and verbal discharge instructions regarding acute gingival inflammation. Prescriptions provided x2 Discussed antibiotic therapy and to take until all completed unless adverse reaction occurs - if occurs, discontinue medication and follow up with pcp/seek medical attention Pt verbalized understanding of instructions, pt awake alert oriented, resp reg unlabored, skin w/d, color appropriate for race, moves all ext well,pt encouraged to follow up with pcp. Advised to seek medical attention for new/prolonged/worsening of symptoms. Awake, alert oriented, resp reg unlabored, skin w/d, pt leaving amb with steady gait, in no apparent distress. Bonnie Garcia RN [facility] 2024-03-31 16:23:33 Pt presents to the ED ambulatory with c/o tooth pain. Pt states she has fake teeth that are not the right size, causing a hole she thinks is infected. Oli Marin RN [facility] 2023-01-21 19:45:37 Formatting of this n ote might be different from the original. Pt given printed and verbal discharge instructions regarding chest pain, encouraged hydration, 0 Prescriptions provided Pt verbalized understanding of instructions, pt awake alert oriented, resp reg unlabored, skin w/d, color appropriate for race, moves all ext well,pt encouraged to follow up with pcp and cardiology Advised to seek medical attention for new/prolonged/worsening of symptoms, Symptoms improved. PIV d'cd, dressing to site, catheter in tact. Awake, alert oriented, resp reg unlabored, skin w/d, pt leaving amb with steady gait, in no apparent distress, Millie Carpenter RN [facility] 2023-01-21 15:30:12 Formatting of this n ote might be different from the original. Patient reports that she has been having heart palpitations off and on for the past month and states that they have continued to come. Reports that she has been having chest pain that she describes as a dull pain. This morning she described the pain as a "pinching" type pain in the left side of her chest. Chest is tender to palpation. Deepthi Infante RN [facility]
[2025-02-01 03:06] LABS: Absolute Lymphocytes (CBC) 2.5 K/uL (0.7-4.9); Hematocrit 32.8 % (36.0-45.0); Hemoglobin 10.9 g/dL (12.0-15.0); MCH 28.3 pg (27.0-35.0); MCHC 33.2 g/dL (32.0-36.0); MCV 85.1 fL (80-100); MPV 10.4 fL (7.6-11.3); Nucleated RBC Absolute Count 0.0 (0-0); Nucleated Red Blood Cells % 0.0 % (0-0); RBC Red Blood Cell Count 3.86 M/uL (3.86-4.86); White Blood Count 9.10 thou/uL (4.3-10.9)
[2025-02-01 03:13] LABS: PT Prothrombin Time 11.4 SECONDS (10-13.0); Protime INR 1.01
[2025-02-01] MEDS ORDERED: MAGNES/ALUMIN/SIMET 30ML UCUP ONE (03:14)
[2025-02-01] MEDS ORDERED: LIDOCAINE VISCOUS 2% 10ML ORAL SOLN ONE (03:15)
[2025-02-01 03:28] LABS: ALT/SGPT 51 U/L (13-56); AST/SGOT 99 U/L (15-37); Albumin 3.3 g/dL (3.4-5.0); Albumin/Globulin Ratio 1.1 (1.1-1.8); Alkaline Phosphatase 57 U/L (45-117); Anion Gap 10.4 mEq/L (5.0-15.0); BUN Blood Urea Nitrogen 9 mg/dL (7-18); Globulin 2.9 g/dL (2.3-3.5); Glucose Level 92 mg/dL (74-106); Magnesium 1.6 mg/dL (1.6-2.4); NT PRO-BNP 148 pg/mL (<125); Potassium 3.4 mEq/L (3.5-5.1); Troponin High Sensitivity 3.7 pg/mL (<58.9)
[2025-02-01 03:32] LABS: Bilirubin Indirect, Calculated 0.2 mg/dL (0.2-0.8)
--- NOTE | 2025-02-01 03:38 | ER ---
Nurse's Notes [facility] Name: Mary Briones Age: 34 yrs Sex: Female : 1990 Arrival Date: 02/01/2025 Time: 02:21 Bed 18 Private MD: Diagnosis: Chest pain, esophagitis Presentation: 02/01 02:30 Chief complaint: Patient states: PT C/O LEFT CHEST WALL PAIN THAT RADIATES TO LEFT JAW br2 THEN TO MID-STERNAL AREA, SOB. Coronavirus screen: Client denies travel out of the [place] in the last 14 days. Ebola Screen: Patient denies exposure to infectious person. Initial Sepsis Screen: Does the patient meet any 2 criteria? No. Patient's initial sepsis screen is negative. Does the patient have a suspected source of infection? No. Patient's initial sepsis screen is negative. Risk Assessment: Do you want to hurt yourself or someone else? Patient reports no desire to harm self or others. Onset of symptoms was February 01, 2025 at 01:30. 02:30 Method Of Arrival: Ambulatory br2 02:30 Acuity: KIRSTY 3 br2 Triage Assessment: 02:32 General: Appears in no apparent distress. comfortable, Behavior is calm, cooperative. br2 Pain: Complains of pain in anterior aspect of left upper chest Pain radiates to left jaw. 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 - Infectious Disease History:: Denies. - Social history:: Smoking status: Reported history of juuling and/or vaping. Patient/guardian denies using alcohol, street drugs. Screenin:46 [facility] ED Fall Risk Assessment (Adult) History of falling in the last 3 months, cc6 including since admission No falls in past 3 months (0 pts) Confusion or Disorientation No (0 pts) Intoxicated or Sedated No (0 pts) Impaired Gait No (0 pts) Mobility Assist Device Used No (0 pt) Altered Elimination No (0 pt) Score/Fall Risk Level 0 - 2 = Low Risk Oriented to surroundings, Maintained a safe environment, Educated pt \T\ family on fall prevention, incl call for assistance when getting out of bed, Hourly rounding (assess needs \T\ fall precautionary measures) done. Abuse screen: Denies threats or abuse. Denies injuries from another. Nutritional screening: No deficits noted. Tuberculosis screening: No symptoms or risk factors identified. Assessment: 02:40 General: Appears uncomfortable, Behavior is anxious. Pain: Complains of pain in chest cc6 Pain radiates to posterior aspect of left shoulder Pain currently is 2 out of 10 on a pain scale. Quality of pain is described as pressure, Pain began 3 hours ago. Aggravated by repositioning. Neuro: Level of Consciousness is awake, alert, obeys commands, Oriented to person, place, time, situation. Cardiovascular: Capillary refill < 3 seconds Patient's skin is warm and dry. Respiratory: Airway is patent Respiratory effort is even, unlabored, Respiratory pattern is regular, symmetrical. GI: Abdomen is flat, non-distended. : No signs and/or symptoms were reported regarding the genitourinary system. Derm: Skin is dry, Skin is pink, warm \T\ dry. normal. Musculoskeletal: Circulation, motion, and sensation intact. Range of motion: intact in all extremities. 03:56 Reassessment: Patient and/or family updated on plan of care and expected duration. Pain cc6 level reassessed. Patient is alert, oriented x 3, equal unlabored respirations, skin warm/dry/pink. Patient states feeling better. Patient states symptoms have improved. Vital Signs: 02:30 BP 149 / 93; Pulse 68; Resp 18; Temp 98.1(O); Pulse Ox 100% on R/A; Weight 53.52 kg; br2 Height 5 ft. 5 in. ; Pain 2/10; 03:30 BP 144 / 75; Pulse 55; Resp 15; Pulse Ox 100% on R/A; cc6 02:30 Body Mass Index 19.64 (53.52 kg, 165.1 cm) br2 02:30 Pain Scale: Adult br2 ED Course: 02:24 Patient arrived in ED. jj6 02:24 Juno Alaniz MD is Attending Physician. sp3 02:25 Karina Grey, RN is Primary Nurse. cc6 02:32 Triage completed. br2 02:32 Arm band placed on right wrist. br2 02:46 Patient has correct armband on for positive identification. Bed in low position. Call cc6 light in reach. Provided Education on: call light . Client placed on continuous cardiac and pulse oximetry monitoring. NIBP monitoring applied. 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 Inserted saline lock: 20 gauge cc6 in right antecubital area, using aseptic technique. Blood collected. Flushed with 10 mL NS. Patient maintains SpO2 saturation greater than 95% on room air. 03:09 Basic Metabolic Panel Sent. cc6 03:09 CBC with Diff Sent. cc6 03:09 Magnesium Sent. cc6 03:09 LFT's Sent. cc6 03:09 NT PRO-BNP Sent. cc6 03:09 PT-INR Sent. cc6 03:09 Troponin HS Sent. cc6 03:26 XRAY Chest (1 view) In Process Unspecified. EDMS 03:55 IV discontinued, intact, bleeding controlled, No redness/swelling at site. Pressure cc6 dressing applied. Administered Medications: 03:27 Drug: GI Cocktail without - (Maalox PO 30 ml, Lidocaine Mucous Membrane 2 % 15 cc6 ml) PO once Route: PO; 03:56 Follow up: Response: No adverse reaction; Marked relief of symptoms cc6 Medication: 02:47 VIS not applicable for this client. cc6 Outcome: 03:37 Discharge ordered by . sp3 03:55 Discharged to home ambulatory, cc6 03:55 Condition: stable 03:55 Discharge instructions given to patient, Instructed on discharge instructions, follow up and referral plans. Demonstrated understanding of instructions, follow-up care, 03:58 Patient left the ED. cc6 Signatures: Dispatcher [employer] EDMS Juno Alaniz MD MD sp3 Rosana Meadows6 Julia Overton RN RN br2 Karina Grey, CHILO RN cc6
--- NOTE | 2025-02-01 03:38 | EDPHYS ---
Physician Documentation [facility] Name: Mary Briones Age: 34 yrs Sex: Female : 1990 Arrival Date: 02/01/2025 Time: 02:21 Bed 18 Private MD: ED Physician Juno Alaniz HPI: 02/01 03:33 This 34 yrs old Female presents to ER via Ambulatory with complaints of Chest Pain. 3 03:33 34-year-old female with history of bipolar disease, esophagitis, asthma now presents to [facility] the ED with chief complaint chest pain over the last several days. She denies any other symptoms including headache, neck pain, shortness of breath, abdominal pain, nausea, vomit, diarrhea, syncope, near syncope, known sick contacts, travel history, or any other signs or symptoms on ROS at this time. Pain is described as burning in nature going up to her jaw.. 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 - Infectious Disease History:: Denies. - Social history:: Smoking status: Reported history of juuling and/or vaping. Patient/guardian denies using alcohol, street drugs. ROS: 03:33 Constitutional: Negative for fever, chills, and weight loss, Eyes: Negative for injury, sp3 pain, redness, and discharge, ENT: Negative for injury, pain, and discharge, Neck: Negative for injury, pain, and swelling, Respiratory: Negative for shortness of breath, cough, wheezing, and pleuritic chest pain, Abdomen/GI: Negative for abdominal pain, nausea, vomiting, diarrhea, and constipation, Back: Negative for injury and pain, MS/Extremity: Negative for injury and deformity, Skin: Negative for injury, rash, and discoloration, Neuro: Negative for headache, weakness, numbness, tingling, and seizure, Psych: Negative for depression, anxiety, suicide ideation, homicidal ideation, and hallucinations, Allergy/Immunology: Negative for hives, rash, and allergies, Endocrine: Negative for neck swelling, polydipsia, polyuria, polyphagia, and marked weight changes, Hematologic/Lymphatic: Negative for swollen nodes, abnormal bleeding, and unusual bruising, 03:33 All other systems are negative, Exam: 03:34 Constitutional: This is a well developed, well nourished patient who is awake, alert, sp3 and in no acute distress. Head/Face: Normocephalic, atraumatic. Eyes: Pupils equal round and reactive to light, extra-ocular motions intact. Lids and lashes normal. Conjunctiva and sclera are non-icteric and not injected. Cornea within normal limits. Periorbital areas with no swelling, redness, or edema. Neck: Trachea midline, no thyromegaly or masses palpated, and no cervical lymphadenopathy. Supple, full range of motion without nuchal rigidity, or vertebral point tenderness. No Meningismus. Chest/axilla: Normal chest wall appearance and motion. Nontender with no deformity. No lesions are appreciated. Cardiovascular: Regular rate and rhythm with a normal S1 and S2. No gallops, murmurs, or rubs. Normal PMI, no JVD. No pulse deficits. Respiratory: Lungs have equal breath sounds bilaterally, clear to auscultation and percussion. No rales, rhonchi or wheezes noted. No increased work of breathing, no retractions or nasal flaring. Abdomen/GI: Soft, non-tender, with normal bowel sounds. No distension or tympany. No guarding or rebound. No evidence of tenderness throughout. Back: No spinal tenderness. No costovertebral tenderness. Full range of motion. Skin: Warm, dry with normal turgor. Normal color with no rashes, no lesions, and no evidence of cellulitis. MS/ Extremity: Pulses equal, no cyanosis. Neurovascular intact. Full, normal range of motion. Neuro: Awake and alert, GCS 15, oriented to person, place, time, and situation. Cranial nerves II-XII grossly intact. Motor strength 5/5 in all extremities. Sensory grossly intact. Cerebellar exam normal. Normal gait. Psych: Awake, alert, with orientation to person, place and time. Behavior, mood, and affect are within normal limits. 03:34 ECG was reviewed by the Attending Physician. EKG demonstrates sinus bradycardia at 54 sp3 bpm with normal intervals, normal QRS, normal axis and normal ST/T-segment's without evidence of acute ischemia. Vital Signs: 02:30 BP 149 / 93; Pulse 68; Resp 18; Temp 98.1(O); Pulse Ox 100% on R/A; Weight 53.52 kg; br2 Height 5 ft. 5 in. ; Pain 2/10; 03:30 BP 144 / 75; Pulse 55; Resp 15; Pulse Ox 100% on R/A; cc6 02:30 Body Mass Index 19.64 (53.52 kg, 165.1 cm) br2 02:30 Pain Scale: Adult br2 MDM: 02:25 Medical Screening Exam initiated sp3 03:36 Data reviewed: vital signs, nurses notes, old medical records, lab test result(s), EKG, sp3 radiologic studies. ED course: 34-year-old female with chest pain. Differential diagnosis includes esophagitis, gastritis, musculoskeletal pain, and to a much lesser degree ACS or other cardiovascular pathology. I am mildly suspicious of the latter. EKG is normal, chest x-ray is normal and labs are all within normal limits. We gave GI cocktail without to assess for possible esophagitis type pathology. Patient is already on OTC meds. We will discharge patient home at this time with follow-up to PCP.. 02/01 02:49 Order name: Basic Metabolic Panel; Complete Time: 03:32 sp3 02/01 02:49 Order name: CBC with Diff; Complete Time: 03:23 sp3 02/01 02:49 Order name: LFT's; Complete Time: 03:32 sp3 02/01 02:49 Order name: Magnesium; Complete Time: 03:32 sp3 02/01 02:49 Order name: NT PRO-BNP; Complete Time: 03:32 sp3 02/01 02:49 Order name: PT-INR; Complete Time: 03:23 sp3 02/01 02:49 Order name: Troponin HS; Complete Time: 03:32 sp3 02/01 02:49 Order name: XRAY Chest (1 view) sp3 02/01 02:49 Order name: EKG; Complete Time: 02:50 sp3 02/01 02:49 Order name: Cardiac monitoring; Complete Time: 02:50 sp3 08/18 02:49 Order name: EKG - Nurse/Tech; Complete Time: 02:50 sp3 02/01 02:49 Order name: IV Saline Lock; Complete Time: 02:50 sp3 02/01 02:49 Order name: Labs collected and sent; Complete Time: 02:50 sp3 02/01 02:49 Order name: O2 Per Protocol; Complete Time: 02:50 sp3 02/01 02:49 Order name: O2 Sat Monitoring; Complete Time: 02:50 sp3 Administered Medications: 03:27 Drug: GI Cocktail without - (Maalox PO 30 ml, Lidocaine Mucous Membrane 2 % 15 cc6 ml) PO once Route: PO; 03:56 Follow up: Response: No adverse reaction; Marked relief of symptoms cc6 Disposition Summary: 02/01/25 03:37 Discharge Ordered Notes: Location: Home sp3 Condition: Stable sp3 Diagnosis - Chest pain, esophagitis sp3 Followup: sp3 - With: Private Physician - When: Upon discharge from the Emergency Department - Reason: Continuance of care Discharge Instructions: - Discharge Summary Sheet sp3 - Nonspecific Chest Pain, Adult sp3 Forms: - Medication Reconciliation Form sp3 - Antibiotic Education sp3 - Prescription Opioid Use sp3 - Patient Portal Instructions sp3 - Leadership Thank You Letter sp3 Signatures: Dispatcher [employer] Juno Oates MD MD sp3 Julia Overton, RN RN br2 Karina Grey, RN RN cc6
--- NOTE | 2025-02-01 04:36 | RAD REPORT ---
EXAMINATION: XR CHEST 1 VIEW INDICATION: 34 years old Female 1990 Chest pain. COMPARISON(S): XR Chest 01/26/2019 (Only report available). TECHNIQUE: 1 view X-ray of the chest was performed. FINDINGS: Support Devices: None. Heart: Cardiac silhouette is normal in size. Mediastinum: Mediastinal contours are normal. Lungs: Lungs are well aerated and clear. Osseous Structures: Visualized skeleton is normal. IMPRESSION: 1. No acute findings. Electronically signed by: Christopher Tobar MD 02/01/2025 04:31 AM CDT RP Due to temporary technical issues with the PACS/NanoH2O reporting system, reports are being zelda d by the in-house radiologist without review as a courtesy to ensure prompt reporting the interpreting radiologist is fully responsible for the content of the report. Transcribed Date/Time: 02/01/2025 4:36 AM
[2025-02-01 11:01] VITALS: TEMP 98.1; O2SAT 100
[2025-02-01 11:02] VITALS: BP 144/75
== END 2025-02-01 03:58 | disposition home or self-care (01) ==
LOC: ER 02:21
DX: R07.9 Chest pain, unspecified (principal); K20.90 Esophagitis, unspecified without bleeding; F41.9 Anxiety disorder, unspecified
CPT/HCPCS: 36415; 71045; 80048; 80076; 83735; 83880; 84484; 85025; 85610; 93005; 99284